=== PATIENT | female | born 1960 | race African-American/Black ===

== ENCOUNTER 2016-10-29 08:51 | Day surgery (SDC) | payer MEDICAID ==
[2016-10-29] MEDS ORDERED: LR 1,000 ML IV ONE (09:16)
[2016-10-29] MEDS ORDERED: LIDOCAINE 1% 2 ML INJ ID PRN (09:16)
--- NOTE | 2016-10-29 09:17 | PDGENHP ---
History & Physical Chief Complaint: Personal hx of polyps Relevant Physical Exam: GED: NAD. Cardiac: RRR. Lungs: CTA B. Abd: Soft, NT, nd
--- NOTE | 2016-10-29 10:01 | PDANEPAE ---
ANE History of Present Illness Colonoscopy ANE Past Medical History - Cardiovascular History Hx Hypertension: Yes Hx Arrhythmias: No Hx Chest Pain: No Hx Coronary Artery / Peripheral Vascular Disease: No Hx CHF / Valvular Disease: No Hx Palpitations: No - Pulmonary History Hx COPD: No Hx Asthma/Reactive Airway Disease: No Hx Recent Upper Respiratory Infection: No Hx Oxygen in Use at Home: No Hx Sleep Apnea: No Sleep Apnea Screening Result - Last Documented: Negative - Neurologic History Hx Cerebrovascular Accident: No Hx Seizures: No Hx Dementia: No - Endocrine History Hx Diabetes: No Hypothyroid: No Hyperthyroid: No Endocrine History Comment: HYPOTHYROID - Renal History Hx Renal Disorders: No - Liver History Hx Hepatic Disorders: No - Neurological & Psychiatric Hx Hx Neurological and Psychiatric Disorders: No - Cancer History Hx Cancer: No - Congenital Disorder History Hx Congenital Disorders: No - GI History Hx Gastrointestinal Disorders: No - Other Health History Other Health History: NEG - Chronic Pain History Chronic Pain: No - Surgical History Prior Surgeries: COLONOSCOPY ANE Review of Systems Review of Systems: - Exercise capacity METS (RN): 4 METS ANE Patient History - Allergies Allergies/Adverse Reactions: yellow dye Allergy (Verified 10/22/16 16:24) - Home Medications Home Medications: Herbals/Supplements -Info Only 10/22/16 [Last Taken 1 Week Ago ~10/22/16] Levothyroxine 10/22/16 [Last Taken 10/29/16 07:00] Lisinopril 10/22/16 [Last Taken 10/29/16 07:00] - NPO status NPO Since - Liquids (Date): 10/29/16 NPO Since - Liquids (Time): 00:00 NPO Since - Solids (Date): 10/28/16 NPO Since - Solids (Time): 09:00 - Anes Hx Anes Hx: no prior problems - Smoking Hx Smoking Status: Former smoker Marijuana use: No - Alcohol Use Alcohol Use: Occasionally - Family Anes Hx Family Anes Hx: none Family Hx Anesthesia Complications: NEG ANE Labs/Vital Signs - Vital Signs Blood Pressure: 125/69 Heart Rate: 68 Respiratory Rate: 16 O2 Sat (%): 95 Height: 162.56 cm Weight: 63.503 kg ANE Physical Exam - Airway Neck exam: FROM Mallampati Score: Class 2 Mouth exam: poor dentition - Pulmonary Pulmonary: no respiratory distress - Cardiovascular Cardiovascular: regular rate and rhythym - ASA Status ASA Status: II ANE Anesthesia Plan Anesthesia Plan: GA with mask Total IV Anesthesia: Yes
[2016-10-29] MEDS ORDERED: NALOXONE HCL 0.4 MG/ML INJ IVP PRN (10:21)
[2016-10-29] MEDS ORDERED: ACETAMINOPHEN 500 MG TAB PO PRN (10:21)
[2016-10-29] MEDS ORDERED: ONDANSETRON 4 MG/2 ML VIAL IVP PRN (10:21)
--- NOTE | 2016-10-29 10:37 | GIREPORT ---
[facility] Surgical Services - Endoscopy Department Patient Name: Pal Mathis Procedure Date: 10/29/2016 9:55 AM Patient Type: Outpatient Attending / BE Physician: Khruram Scruggs MD Procedure: Colonoscopy Indications: High risk colon cancer surveillance: Personal history of colonic polyps Providers: Khurram Scruggs MD Medicines: Monitored Anesthesia Care Complications: No immediate complications. Findings: The perianal and digital rectal examinations were normal. The terminal ileum appeared normal. Two sessile polyps were found in the sigmoid colon. The polyps were 1 to 2 mm in size. These polyps were removed with a cold biopsy forceps. Resection and retrieval were complete. Verification of patient identification for the specimen was done by the physician and nurse using the patient's name and date. Estimated blood loss was minimal. The retroflexed view of the distal rectum and anal verge was normal and showed no anal or rectal abnormalities. Estimated Blood Loss: Estimated blood loss: none. Post Op Diagnosis: - The examined portion of the ileum was normal. - Two 1 to 2 mm polyps in the sigmoid colon, removed with a cold biopsy forceps. Resected and retrieved. - The distal rectum and anal verge are normal on retroflexion view. Recommendation: - Discharge patient to home (with escort). - Resume previous diet. - Continue present medications. - Repeat colonoscopy in 5 years for surveillance (personal history of polyps). - Your pathology results are available within 10 days. - Thank you for allowing me to participate in the care of your patient. Attending Participation: I personally performed the entire procedure. Khurram Scruggs MD Khurram Scruggs MD 10/29/2016 10:37:20 AM Number of Addenda: 0 Note Initiated On: 10/29/2016 9:55 AM Total Procedure Duration Time 0 hours 18 minutes 8 seconds [email or web address]
--- NOTE | 2016-10-29 11:11 | POSTANESTH ---
Post Anesthetic Evaluation Cardiovascular Status: Normal, Stable Respiratory Status: Normal, Stable Level of Consciousness/Mental Status: Can Participate in Eval Pain Control: Adequate, Prn Tx Ordered Nausea/Vomiting Control: Adequate, Prn Tx Ordered Complications Possibly Related to Anesthesia: None Noted
[2016-10-29 11:16] VITALS: PULSE 77; TEMP 96.4
[2016-10-29 11:25] VITALS: RESP 17
[2016-10-29 12:30] VITALS: BP 99/67; O2SAT 99
== END 2016-10-29 12:10 | disposition home or self-care (01) ==
LOC: FSGY 08:51
PROVIDERS: ATTEND Internal Medicine Gastroenterology
PROC: 0DBN8ZX Excision of Sigmoid Colon, Via Natural or Artificial Opening Endoscopic, Diagnostic (ICD-10-PCS; principal; 2016-10-29 10:30)
PROC: 0DJD8ZZ Inspection of Lower Intestinal Tract, Via Natural or Artificial Opening Endoscopic (ICD-10-PCS; principal; 2016-10-29 10:30)
DX: Z12.11 Encounter for screening for malignant neoplasm of colon (principal); K62.1 Rectal polyp; Z86.010 Personal history of colon polyps